=== PATIENT | female | born 1960 ===

== ENCOUNTER 2016-11-02 09:29 | Emergency (ER) | payer OTHER ==
--- NOTE | 2016-11-02 10:04 | DIAGNOSTIC IMAGING REPORT ---
PROCEDURE: XR CHEST 1 VIEW INDICATION: SHORTNESS OF BREATH TECHNIQUE: Portable AP view 09:58 a.m. COMPARISON: Chest x-ray 08/11/2015 FINDINGS: Poor inspiration with mild bibasilar atelectasis. Heart and mediastinum are normal. Thorax is normal. IMPRESSION: 1. Poor inspiration with bibasilar atelectasis
--- NOTE | 2016-11-02 12:16 | ED CLINICAL REPORT ---
Clinical Report - Physicians/Mid Levels [facility] [address] [place] [address] 11/02/2016 9:29 Patient: JULIO C VORA Time Seen: 09:34. Arrived- By private vehicle. Historian- patient. HISTORY OF PRESENT ILLNESS Chief Complaint: CHEST DISCOMFORT. SHORTNESS OF BREATH. At its maximum, severity described as moderate. When seen in the E.D., severity described as moderate. Modifying factors- worsened by movement and walking. Relieved by rest. This started several days ago and is still present. It was gradual in onset and has been waxing/waning. Onset during light activity. It is described as pressure and it is described as located in the central chest area. No radiation. The patient has had difficulty breathing and nausea and has experienced diaphoresis. No vomiting. Similar symptoms previously: None. Recent medical care: Not recently seen/assessed. REVIEW OF SYSTEMS No fever, chills, pedal edema, calf pain or fainting episodes. No sore throat, abdominal pain, black stools, difficulty with urination or skin rash. No bloody stools. She has had a mild cough and lower back pain. States she may have some abdominal bloating. All systems otherwise negative, except as recorded above. PAST HISTORY See nurses notes. PCP - [facility]. Problems: Tympanic membrane perforation R. UTI Surgeries: Appendectomy. Cholecystectomy. Tonsillectomy. Tubal Ligation. No history of aortic disease, coronary artery disease, congestive heart failure, heart rhythm problems or pulmonary embolism. Medications: None. Allergies: No Known Drug Allergy. SOCIAL HISTORY Never smoker. No alcohol use or drug use. Residence: [facility] (Formerly [facility]). ADDITIONAL NOTES The nursing notes have been reviewed. PHYSICAL EXAM Vital Signs: 11/02/2016 09:44 BP: 117/56. HR: 199. RR: 18. O2 saturation: 100%. FLACC pain scale: 10/10. 11/02/2016 09:32 HR: 201. RR: 20. O2 saturation: 100%. FLACC pain scale: 10/10. Appearance: Alert. Oriented X3. Anxious. Patient in moderate distress. Eyes: Pupils equal, round and reactive to light. Eyes normal inspection. No scleral icterus or pale conjunctivae. ENT: Pharynx normal. No pharyngeal erythema or tonsillar exudate. The mucous membranes are not dry. Neck: Normal inspection. Neck supple. CVS: Tachycardia. Heart sounds normal. Pulses normal. Respiratory: No respiratory distress. Breath sounds normal. Abdomen: Soft and nontender. No organomegaly. No mass. Back: Normal external inspection. Skin: No cyanosis. Skin warm and dry. Normal skin turgor. Slight diaphoresis. Extremities: Extremities exhibit normal ROM. No lower extremity edema. Neuro: Oriented X 3. No motor deficit. LABS, X-RAYS, AND EKG EKG: EKG time: (09:38). Regular narrow-complex tachycardia (ventricular rate 200). PSVT. Normal P waves. Normal ASHTYN. Normal QRS complex. Normal axis. Non-specific ST segment / T wave abnormalities. The study has been interpreted contemporaneously by me. The EKG appears to be a good tracing. EKG #2: EKG time: (09:52). Normal sinus rhythm. Rate: 95. Normal P waves. Normal ASHTYN. Normal QRS complex. Normal axis. Normal ST and T waves. Non-specific ST segment / T wave abnormalities. The study has been interpreted contemporaneously by me. The EKG appears to be a good tracing. Rhythm Strip #1: Non-specific ST segment / T-wave abnormalities. Chest X-ray: No acute disease. (Poor inspiration with bibasilar atelectasis). Views: AP (portable). Technique: good, poor inspiration. The X-rays were interpreted contemporaneously by me. The X-rays were discussed with the radiologist (via PACS note). Laboratory Tests: UA-Culture if indicated: (ALESSANDRO: 11/02/2016 11:30) ( MsgRcvd 11/02/2016 12:16) Final results Test Result Flag Units (Reference) URINE COLOR YELLOW URINE APPEARANCE CLEAR URINE GLUCOSE NEGATIVE (NEGATIVE) URINE BILIRUBIN NEGATIVE (NEGATIVE) URINE KETONE NEGATIVE (NEGATIVE) URINE SPECIFIC GRAVITY <= 1.005 L (1.010-1.030) URINE PH 6.5 (5.0-8.0) URINE PROTEIN NEGATIVE (NEGATIVE) URINE UROBILINOGEN 4.0 EU/dL (0.2-1.0) The urobilinogen reagent area may react with interferingsubstances known to react with Steffanie's reagent such asp-aminosalicylic acid and sulfonamides. Atypical colorreactions may be obtained in the presence of highconcentrations of p-aminobenzoic acid. The absence ofurobilinogen cannot be determined with this test. URINE NITRITE NEGATIVE (NEGATIVE) URINE BLOOD TRACE-INTACT (NEGATIVE) URINE LEUK ESTERASE POSITIVE (NEGATIVE) URINE RBC RARE rbc/hpf (0-1) URINE WBC 1-3 wbc/hpf (0-1) URINE EPITHELIAL CELLS 1-3 EPI/hpf (0-5) URINE BACTERIA FEW (1+) (NONE SEEN) URINE COMMENT CULTURE INDICATED URINE CULTURES ARE SET-UP BASED ON THE FOLLOWING CRITERIA:POSITIVE NITRITEPOSITIVE LEUKOCYTE ESTERASEGREATER THAN 10 WHITE BLOOD CELLSMODERATE (2+) OR GREATER BACTERIA CBC w Diff: (ALESSANDRO: 11/02/2016 09:40) ( [facility] 11/02/2016 09:51) Final results Test Result Flag Units (Reference) WHITE BLOOD COUNT 12.9 H K/uL (4.5-11.5) RED BLOOD COUNT 4.73 M/uL (4.00-5.20) HEMOGLOBIN 13.3 gm/dL (12.0-16.0) HEMATOCRIT 39.6 % (36.0-46.0) MEAN CELL VOLUME 84 fL (80-100) MEAN CORPUSCULAR HGB 28 pg (26-34) MEAN CORPUSCULAR HGB CONC 34 g/dL (31-37) RED CELL DISTRIBUTION WIDTH 13.7 % (11.6-14.8) PLATELET COUNT 325 K/uL (150-400) NEUTROPHIL % 78.3 H % (50-75) LYMPH % 17.5 L % (25-40) MONO % 2.4 L % (3-14) EOSINOPHIL % 1.7 % (0-4) BASOPHIL % 0.1 % (0-2) PT with INR: (ALESSANDRO: 11/02/2016 09:40) ( [facility] 11/02/2016 09:59) Final results Test Result Flag Units (Reference) INR 1.0 (0.8-1.2) Low Intensity Therapy: INR 1.5-2.0 PT range 18.5-23.1Mod.Intensity Therapy: INR 2.0-3.0 PT range 23.1-31.5High Intensity Therapy: INR 2.5-3.5 PT range 27.4-35.5High Intensity Therapy 2: INR 3.0-4.0 PT range 31.5-39.3 D-DIMER QUANTITATIVE 0.47 ug/mLFEU (0.27-0.52) The primary value of this quantitative assay relates toits negative predictive value (i.e. exclusion) of pulmonaryembolism/deep vein thrombosis/DIC.Elevated levels of d-dimer may also occur with:, age, cancer, inflammation, liver disease,post-op, infection, hematoma, coronary disease, peripheralarteriopathy, bleeding disorders and thrombolytic treatment.Results should be correlated with other clinical andradiological data.Testing Methodology: Latex Immunoassay Urine Drug Screen: (ALESSANDRO: 11/02/2016 11:30) ( MsgRcvd 11/02/2016 12:06) Final results Test Result Flag Units (Reference) AMPHETAMINE/METHAMPHETAMINE NEGATIVE (NEGATIVE) BARBITURATE NEGATIVE (NEGATIVE) BENZODIAZEPINE NEGATIVE (NEGATIVE) CANNABINOID NEGATIVE (NEGATIVE) COCAINE NEGATIVE (NEGATIVE) ECSTASY NEGATIVE (NEGATIVE) METHADONE NEGATIVE (NEGATIVE) OPIATE POSITIVE H (NEGATIVE) The urine drug screen is a qualitative screening test fordrug overdose and abuse. All screen results should beconsidered as presumptive.Drugs screened for are as follows:BenzodiazepinesCocaineAmphetamines/MetamphetaminesTHC (Tetrahydrocannabinol)OpiatesBarbituratesEcstasyMethadonePositive results are unconfirmed. For confirmation, notifythe lab for the specimen to be sent to the reference lab.All confirmations must be performed by a differentmethodology.The ingestion of natural herbal and plant productscontaining Ephedra/Ephedra metabolites can produce in urineone or more substances capable of cross reacting withamphetamine/methamphetamine immunoassays. These testsprovide a preliminary result only. A more specificalternative chemical method must be used to obtain aconfirmed analytical result. BNP: (ALESSANDRO: 11/02/2016 09:40) ( MsgRcvd 11/02/2016 10:12) Final results Test Result Flag Units (Reference) B-TYPE NATRIURETIC PEPTIDE 552 H pg/ml (5-100) CHEM 13 PANEL: (ALESSANDRO: 11/02/2016 09:40) ( MsgRcvd 11/02/2016 10:28) Final results Test Result Flag Units (Reference) GLUCOSE 137 H mg/dL (70-110) BUN 9 mg/dL (7-18) CREATININE 1.2 mg/dL (0.6-1.3) Estimated GFR 49.39 mL/min Estimated GFR- 59.86 mL/min Note: Persistent reduction over 3 months in eGFR<60 mL/min/1.73 m2 defines CKD. Patients with eGFR values>=60 mL/min/1.73 m2 may also have CKD if evidence ofpersistent proteinuria. Additional information may be foundat www.kidney.org. SODIUM 151 H mmol/L (136-145) POTASSIUM 3.6 mmol/L (3.5-5.1) CHLORIDE 108 H mmol/L (98-107) CARBON DIOXIDE 25 mmol/L (21-32) CALCIUM 8.6 mg/dL (8.5-10.1) TOTAL PROTEIN 7.7 g/dL (6.4-8.2) ALBUMIN 3.5 g/dL (3.3-5.0) BILIRUBIN, TOTAL 1.0 mg/dL (0.0-1.0) ALKALINE PHOSPHATASE 111 U/L (46-116) AST (SGOT) 19 U/L (15-37) ALT (SGPT) 27 U/L (12-78) CPK 55 U/L (24-260) MAGNESIUM 2.0 mg/dL (1.8-2.4) LIPASE 65 L U/L (73-393) AMYLASE 12 L U/L (25-115) TROPONIN I <0.05 ng/mL (0.00-1.5) TROPONIN REFERENCE RANGE:<0.1 NEGATIVE0.1-1.5 INDETERMINANT>1.5 POSITIVE THYROID STIMULATING HORMONE 0.854 uIU/mL (0.30-3.74) ETHYL ALCOHOL <3 L mg/dL (3-10) . Pulse Oximetry: 11/02/2016 09:32 O2 saturation: 100%. (FIO2 - room air). Interpretation: normal. PROGRESS AND PROCEDURES Course of Care: Acetaminophen 1000 mg PO given. Adenosine 6 mg IVP given. Normal Saline 2 liter IVPB given. ASA 325 mg PO given. Lovenox 80 mg subQ given. Ceftriaxone 1gm IVP given. 09:51 11/02/16. O2 saturation- 98% (FIO2 - room air). Appearance better. Sinus rhythm. Adenocard given 6 mg. 12:10 11/02/16. Pt is now in a new rhythm - bigeminy pattern with PACs and ectopic atrial rhythm. BP in upper 80's, but otherwise asymptomatic 14:58 11/02/16. Just received bed at [facility] for pt 16:04 11/02/16. [facility] transport in ED now. Discussed case with hospitalist, (Tj). Reviewed test results. Agreed upon treatment plan. Refers case to other health care provider. Discussed case with on-call health care provider, (Sean call returned 13:20). Reviewed test results. Agreed upon treatment plan. Health care provider will see patient in hospital. Refers case to other health care provider. Call placed to hospitalist Zak - [facility] call placed 13:25 call returned 13:30. Patient/family counseled. Old ED records reviewed. Transfer orders written. Disposition: Transferred to [facility]. [facility] hospitalist did not feel comfortable keeping pt at [facility]. Condition: guarded and improved. CLINICAL IMPRESSION Acute moderate systolic, left ventricular congestive heart failure. Mild idiopathic hypotension. Abnormal EKG: paroxysmal supraventricular tachycardia, nonspecific ST-T wave changes and premature ventricular contractions. (initially SVT, then bigemeny with PAC's and likely ectopic atrial rhythm). Paroxysmal supraventricular tachycardia Acute urinary tract infection with cystitis. (Electronically signed by Harman Simons DO 11/02/2016 16:24)
--- NOTE | 2016-11-02 12:16 | ED CLINICAL REPORT ---
Clinical Report - Physicians/Mid Levels [facility] [address] [place] [address] 11/02/2016 9:29 Patient: JULIO C VORA Time Seen: 09:34. Arrived- By private vehicle. Historian- patient. HISTORY OF PRESENT ILLNESS Chief Complaint: CHEST DISCOMFORT. SHORTNESS OF BREATH. At its maximum, severity described as moderate. When seen in the E.D., severity described as moderate. Modifying factors- worsened by movement and walking. Relieved by rest. This started several days ago and is still present. It was gradual in onset and has been waxing/waning. Onset during light activity. It is described as pressure and it is described as located in the central chest area. No radiation. The patient has had difficulty breathing and nausea and has experienced diaphoresis. No vomiting. Similar symptoms previously: None. Recent medical care: Not recently seen/assessed. REVIEW OF SYSTEMS No fever, chills, pedal edema, calf pain or fainting episodes. No sore throat, abdominal pain, black stools, difficulty with urination or skin rash. No bloody stools. She has had a mild cough and lower back pain. States she may have some abdominal bloating. All systems otherwise negative, except as recorded above. PAST HISTORY See nurses notes. PCP - [facility]. Problems: Tympanic membrane perforation R. UTI Surgeries: Appendectomy. Cholecystectomy. Tonsillectomy. Tubal Ligation. No history of aortic disease, coronary artery disease, congestive heart failure, heart rhythm problems or pulmonary embolism. Medications: None. Allergies: No Known Drug Allergy. SOCIAL HISTORY Never smoker. No alcohol use or drug use. Residence: [facility]. ADDITIONAL NOTES The nursing notes have been reviewed. PHYSICAL EXAM Vital Signs: 11/02/2016 09:44 BP: 117/56. HR: 199. RR: 18. O2 saturation: 100%. FLACC pain scale: 10/10. 11/02/2016 09:32 HR: 201. RR: 20. O2 saturation: 100%. FLACC pain scale: 10/10. Appearance: Alert. Oriented X3. Anxious. Patient in moderate distress. Eyes: Pupils equal, round and reactive to light. Eyes normal inspection. No scleral icterus or pale conjunctivae. ENT: Pharynx normal. No pharyngeal erythema or tonsillar exudate. The mucous membranes are not dry. Neck: Normal inspection. Neck supple. CVS: Tachycardia. Heart sounds normal. Pulses normal. Respiratory: No respiratory distress. Breath sounds normal. Abdomen: Soft and nontender. No organomegaly. No mass. Back: Normal external inspection. Skin: No cyanosis. Skin warm and dry. Normal skin turgor. Slight diaphoresis. Extremities: Extremities exhibit normal ROM. No lower extremity edema. Neuro: Oriented X 3. No motor deficit. LABS, X-RAYS, AND EKG EKG: EKG time: (09:38). Regular narrow-complex tachycardia (ventricular rate 200). PSVT. Normal P waves. Normal ASHTYN. Normal QRS complex. Normal axis. Non-specific ST segment / T wave abnormalities. The study has been interpreted contemporaneously by me. The EKG appears to be a good tracing. EKG #2: EKG time: (09:52). Normal sinus rhythm. Rate: 95. Normal P waves. Normal ASHTYN. Normal QRS complex. Normal axis. Normal ST and T waves. Non-specific ST segment / T wave abnormalities. The study has been interpreted contemporaneously by me. The EKG appears to be a good tracing. Rhythm Strip #1: Non-specific ST segment / T-wave abnormalities. Chest X-ray: No acute disease. (Poor inspiration with bibasilar atelectasis). Views: AP (portable). Technique: good, poor inspiration. The X-rays were interpreted contemporaneously by me. The X-rays were discussed with the radiologist (via PACS note). Laboratory Tests: UA-Culture if indicated: (ALESSANDRO: 11/02/2016 11:30) ( MsgRcvd 11/02/2016 12:16) Final results Test Result Flag Units (Reference) URINE COLOR YELLOW URINE APPEARANCE CLEAR URINE GLUCOSE NEGATIVE (NEGATIVE) URINE BILIRUBIN NEGATIVE (NEGATIVE) URINE KETONE NEGATIVE (NEGATIVE) URINE SPECIFIC GRAVITY <= 1.005 L (1.010-1.030) URINE PH 6.5 (5.0-8.0) URINE PROTEIN NEGATIVE (NEGATIVE) URINE UROBILINOGEN 4.0 EU/dL (0.2-1.0) The urobilinogen reagent area may react with interferingsubstances known to react with Steffanie's reagent such asp-aminosalicylic acid and sulfonamides. Atypical colorreactions may be obtained in the presence of highconcentrations of p-aminobenzoic acid. The absence ofurobilinogen cannot be determined with this test. URINE NITRITE NEGATIVE (NEGATIVE) URINE BLOOD TRACE-INTACT (NEGATIVE) URINE LEUK ESTERASE POSITIVE (NEGATIVE) URINE RBC RARE rbc/hpf (0-1) URINE WBC 1-3 wbc/hpf (0-1) URINE EPITHELIAL CELLS 1-3 EPI/hpf (0-5) URINE BACTERIA FEW (1+) (NONE SEEN) URINE COMMENT CULTURE INDICATED URINE CULTURES ARE SET-UP BASED ON THE FOLLOWING CRITERIA:POSITIVE NITRITEPOSITIVE LEUKOCYTE ESTERASEGREATER THAN 10 WHITE BLOOD CELLSMODERATE (2+) OR GREATER BACTERIA CBC w Diff: (ALESSANDRO: 11/02/2016 09:40) ( [facility] 09:[facility]) Final results Test Result Flag Units (Reference) WHITE BLOOD COUNT 12.9 H K/uL (4.5-11.5) RED BLOOD COUNT 4.73 M/uL (4.00-5.20) HEMOGLOBIN 13.3 gm/dL (12.0-16.0) HEMATOCRIT 39.6 % (36.0-46.0) MEAN CELL VOLUME 84 fL (80-100) MEAN CORPUSCULAR HGB 28 pg (26-34) MEAN CORPUSCULAR HGB CONC 34 g/dL (31-37) RED CELL DISTRIBUTION WIDTH 13.7 % (11.6-14.8) PLATELET COUNT 325 K/uL (150-400) NEUTROPHIL % 78.3 H % (50-75) LYMPH % 17.5 L % (25-40) MONO % 2.4 L % (3-14) EOSINOPHIL % 1.7 % (0-4) BASOPHIL % 0.1 % (0-2) PT with INR: (ALESSANDRO: 11/02/2016 09:40) ( [facility] [place]/02/2016 09:59) Final results Test Result Flag Units (Reference) INR 1.0 (0.8-1.2) Low Intensity Therapy: INR 1.5-2.0 PT range 18.5-23.1Mod.Intensity Therapy: INR 2.0-3.0 PT range 23.1-31.5High Intensity Therapy: INR 2.5-3.5 PT range 27.4-35.5High Intensity Therapy 2: INR 3.0-4.0 PT range 31.5-39.3 D-DIMER QUANTITATIVE 0.47 ug/mLFEU (0.27-0.52) The primary value of this quantitative assay relates toits negative predictive value (i.e. exclusion) of pulmonaryembolism/deep vein thrombosis/DIC.Elevated levels of d-dimer may also occur with:, age, cancer, inflammation, liver disease,post-op, infection, hematoma, coronary disease, peripheralarteriopathy, bleeding disorders and thrombolytic treatment.Results should be correlated with other clinical andradiological data.Testing Methodology: Latex Immunoassay Urine Drug Screen: (ALESSANDRO: 11/02/2016 11:30) ( MsgRcvd 11/02/2016 12:06) Final results Test Result Flag Units (Reference) AMPHETAMINE/METHAMPHETAMINE NEGATIVE (NEGATIVE) BARBITURATE NEGATIVE (NEGATIVE) BENZODIAZEPINE NEGATIVE (NEGATIVE) CANNABINOID NEGATIVE (NEGATIVE) COCAINE NEGATIVE (NEGATIVE) ECSTASY NEGATIVE (NEGATIVE) METHADONE NEGATIVE (NEGATIVE) OPIATE POSITIVE H (NEGATIVE) The urine drug screen is a qualitative screening test fordrug overdose and abuse. All screen results should beconsidered as presumptive.Drugs screened for are as follows:BenzodiazepinesCocaineAmphetamines/MetamphetaminesTHC (Tetrahydrocannabinol)OpiatesBarbituratesEcstasyMethadonePositive results are unconfirmed. For confirmation, notifythe lab for the specimen to be sent to the reference lab.All confirmations must be performed by a differentmethodology.The ingestion of natural herbal and plant productscontaining Ephedra/Ephedra metabolites can produce in urineone or more substances capable of cross reacting withamphetamine/methamphetamine immunoassays. These testsprovide a preliminary result only. A more specificalternative chemical method must be used to obtain aconfirmed analytical result. BNP: (ALESSANDRO: 11/02/2016 09:40) ( MsgRcvd 11/02/2016 10:12) Final results Test Result Flag Units (Reference) B-TYPE NATRIURETIC PEPTIDE 552 H pg/ml (5-100) CHEM 13 PANEL: (ALESSANDRO: 11/02/2016 09:40) ( MsgRcvd 11/02/2016 10:28) Final results Test Result Flag Units (Reference) GLUCOSE 137 H mg/dL (70-110) BUN 9 mg/dL (7-18) CREATININE 1.2 mg/dL (0.6-1.3) Estimated GFR 49.39 mL/min Estimated GFR- 59.86 mL/min Note: Persistent reduction over 3 months in eGFR<60 mL/min/1.73 m2 defines CKD. Patients with eGFR values>=60 mL/min/1.73 m2 may also have CKD if evidence ofpersistent proteinuria. Additional information may be foundat www.kidney.org. SODIUM 151 H mmol/L (136-145) POTASSIUM 3.6 mmol/L (3.5-5.1) CHLORIDE 108 H mmol/L (98-107) CARBON DIOXIDE 25 mmol/L (21-32) CALCIUM 8.6 mg/dL (8.5-10.1) TOTAL PROTEIN 7.7 g/dL (6.4-8.2) ALBUMIN 3.5 g/dL (3.3-5.0) BILIRUBIN, TOTAL 1.0 mg/dL (0.0-1.0) ALKALINE PHOSPHATASE 111 U/L (46-116) AST (SGOT) 19 U/L (15-37) ALT (SGPT) 27 U/L (12-78) CPK 55 U/L (24-260) MAGNESIUM 2.0 mg/dL (1.8-2.4) LIPASE 65 L U/L (73-393) AMYLASE 12 L U/L (25-115) TROPONIN I <0.05 ng/mL (0.00-1.5) TROPONIN REFERENCE RANGE:<0.1 NEGATIVE0.1-1.5 INDETERMINANT>1.5 POSITIVE THYROID STIMULATING HORMONE 0.854 uIU/mL (0.30-3.74) ETHYL ALCOHOL <3 L mg/dL (3-10) . Pulse Oximetry: 11/02/2016 09:32 O2 saturation: 100%. (FIO2 - room air). Interpretation: normal. PROGRESS AND PROCEDURES Course of Care: Acetaminophen 1000 mg PO given. Adenosine 6 mg IVP given. Normal Saline 2 liter IVPB given. ASA 325 mg PO given. Lovenox 80 mg subQ given. Ceftriaxone 1gm IVP given. 09:51 11/02/16. O2 saturation- 98% (FIO2 - room air). Appearance better. Sinus rhythm. Adenocard given 6 mg. 12:10 11/02/16. Pt is now in a new rhythm - bigeminy pattern with PACs and ectopic atrial rhythm. BP in upper 80's, but otherwise asymptomatic 14:58 11/02/16. Just received bed at [facility] for pt 16:04 11/02/16. [facility] ED now. Discussed case with hospitalist, (Tj). Reviewed test results. Agreed upon treatment plan. Refers case to other health care provider. Discussed case with on-call health care provider, (Sean call returned 13:20). Reviewed test results. Agreed upon treatment plan. Health care provider will see patient in hospital. Refers case to other health care provider. Call placed to hospitalist Zak - [facility] call placed 13:25 call returned 13:30. Patient/family counseled. Old ED records reviewed. Transfer orders written. Disposition: Transferred to [facility]. [facility] hospitalist did not feel comfortable keeping pt at [facility]. Condition: guarded and improved. CLINICAL IMPRESSION Acute moderate systolic, left ventricular congestive heart failure. Mild idiopathic hypotension. Abnormal EKG: paroxysmal supraventricular tachycardia, nonspecific ST-T wave changes and premature ventricular contractions. (initially SVT, then bigemeny with PAC's and likely ectopic atrial rhythm). Paroxysmal supraventricular tachycardia Acute urinary tract infection with cystitis. (Electronically signed by Harman Simons DO 11/02/2016 16:24)
--- NOTE | 2016-11-02 12:16 | ED ORDER SUMMARY ---
..... Patient: JULIO C VORA OrderSheet [facility] VisitID: [id number] [address] [place] [address] 56y, F Registration Date/Time: 11/02/2016 ORDER SHEET Weight: 72.5 kg (stated) Allergies: No Known Drug Allergy GENERAL ORDERS: Chest 1V Urgent (:11/02/2016 PHutchinson DO) (9:59 LWhalen R.N.) Registered Pharmacist (Continuous) (:11/02/2016 PHutchinson DO) (10:01 JSimbeck R.N.) UA-Culture if indicated Urgent (:11/02/2016 PHutchinson DO) (10:00 LWhalen R.N.) Cardiac Panel Stat (:11/02/2016 PHutchinson DO) (10:00 LWhalen R.N.) BNP Urgent (:11/02/2016 PHutchinson DO) (10:00 LWhalen R.N.) D-Dimer Urgent (:11/02/2016 PHutchinson DO) (10:00 LWhalen R.N.) Amylase Urgent (:11/02/2016 PHutchinson DO) (10:00 LWhalen R.N.) PT with INR Urgent (:11/02/2016 PHutchinson DO) (10:00 LWhalen R.N.) TSH Urgent (:11/02/2016 PHutchinson DO) (9:59 LWhalen R.N.) Ethyl Alcohol Urgent (:11/02/2016 PHutchinson DO) (9:59 LWhalen R.N.) Urine Drug Screen Urgent (:11/02/2016 PHutchinson DO) (9:59 LWhalen R.N.) Lipase Urgent (:11/02/2016 PHutchinson DO) (9:59 LWhalen R.N.) Oxygen (2 L/min) (NC) (:11/02/2016 PHutchinson DO) (10:04 JBest R.N.) Pulse oximeter (:11/02/2016 PHutchinson DO) (10:01 Darya R.N.) EKG - ER Stat (09:38 11/02/2016 [facility]) (10:00 Emerita R.N.) Vitals (09:38 11/02/2016 [facility]) (10:01 Darya R.N.) Call (Place call to): (Dr Spencer) (12:12 11/02/2016 [facility]) (12:29 LWgarry R.N.) Call (Place call to): (Heriberto Cardiollogy it professional) (12:23 11/02/2016 [facility]) (12:29 Emerita R.N.) MEDICATION ORDERS: Aspirin PO 325 mg (Do not crush or chew, NOW) (12:11 11/02/2016 [facility]) (12:30 JBest R.N.) Lovenox Subcut 80 mg (HIGH ALERT MEDICATION, NOW) (12:11 11/02/2016 [facility]) (12:31 JBest R.N.) Acetaminophen PO 1,000 mg (NOW) (15:31 11/02/2016 [facility]) (15:41 JBest R.N.) IV FLUIDS: IV NS : initial bolus 500 mL (1000 mL/hr), then 250 mL/hr for X2 (NOW) (09:37 11/02/2016 [facility]) (10:06 JBest R.N.) Adenosine IV 6 mg (HIGH ALERT MEDICATION, NOW) (09:38 11/02/2016 [facility]) (10:06 JBest R.N.) ORDER SHEET NOTES: [Electronically signed by Harman Simons DO (16:24 11/02/2016)] [Electronically signed by Dagmar Aceves R.N. (19:07 11/02/2016)] [Electronically locked/signed by Dagmar Aceves R.N. (19:11/02/2016)]
--- NOTE | 2016-11-02 12:16 | ED ORDER SUMMARY ---
..... Patient: JULIO C VORA OrderSheet [facility] VisitID: [id number] [address] [place] [address] 56y, F Registration Date/Time: 11/02/2016 ORDER SHEET Weight: 72.5 kg (stated) Allergies: No Known Drug Allergy GENERAL ORDERS: Chest 1V Urgent (:11/02/2016 PHutchinson DO) (9:59 LWhalen R.N.) Embedded Systems Software Developer (Continuous) (:11/02/2016 PHutchinson DO) (10:01 JSimbeck R.N.) UA-Culture if indicated Urgent (:11/02/2016 PHutchinson DO) (10:00 LWhalen R.N.) Cardiac Panel Stat (:11/02/2016 PHutchinson DO) (10:00 LWhalen R.N.) BNP Urgent (:11/02/2016 PHutchinson DO) (10:00 LWhalen R.N.) D-Dimer Urgent (:11/02/2016 PHutchinson DO) (10:00 LWhalen R.N.) Amylase Urgent (:11/02/2016 PHutchinson DO) (10:00 LWhalen R.N.) PT with INR Urgent (:11/02/2016 PHutchinson DO) (10:00 LWhalen R.N.) TSH Urgent (:11/02/2016 PHutchinson DO) (9:59 LWhalen R.N.) Ethyl Alcohol Urgent (:11/02/2016 PHutchinson DO) (9:59 LWhalen R.N.) Urine Drug Screen Urgent (:11/02/2016 PHutchinson DO) (9:59 LWhalen R.N.) Lipase Urgent (:11/02/2016 PHutchinson DO) (9:59 LWhalen R.N.) Oxygen (2 L/min) (NC) (:11/02/2016 PHutchinson DO) (10:04 JBest R.N.) Pulse oximeter (:11/02/2016 PHutchinson DO) (10:01 Darya R.N.) EKG - ER Stat (09:38 11/02/2016 [facility]) (10:00 Emerita R.N.) Vitals (09:38 11/02/2016 [facility]) (10:01 Darya R.N.) Call (Place call to): (Dr Spencer) (12:12 11/02/2016 [facility]) (12:29 LWgarry R.N.) Call (Place call to): (Heriberto Cardiollogy senior quality control inspector) (12:23 11/02/2016 [facility]) (12:29 Emerita R.N.) MEDICATION ORDERS: Aspirin PO 325 mg (Do not crush or chew, NOW) (12:11 11/02/2016 [facility]) (12:30 JBest R.N.) Lovenox Subcut 80 mg (HIGH ALERT MEDICATION, NOW) (12:11 11/02/2016 [facility]) (12:31 JBest R.N.) Acetaminophen PO 1,000 mg (NOW) (15:31 11/02/2016 [facility]) (15:41 JBest R.N.) IV FLUIDS: IV NS : initial bolus 500 mL (1000 mL/hr), then 250 mL/hr for X2 (NOW) (09:37 11/02/2016 [facility]) (10:06 JBest R.N.) Adenosine IV 6 mg (HIGH ALERT MEDICATION, NOW) (09:38 11/02/2016 [facility]) (10:06 JBest R.N.) ORDER SHEET NOTES: [Electronically signed by Harman Simons DO (16:24 11/02/2016)] [Electronically signed by Dagmar Aceves R.N. (19:07 11/02/2016)] [Electronically locked/signed by Dagmar Aceves R.N. (19:11/02/2016)]
--- NOTE | 2016-11-02 12:16 | ED NURSING NOTES ---
Clinical Report - Nurses [facility] [address] [place] [address] 11/02/2016 9:29 Patient: JULIO C VORA TRIAGE Triage time 0930. Acuity: LEVEL 2. Chief Complaint: CHEST PAIN and DISCOMFORT. Alert. SEPSIS SCREEN: Sepsis Screen. Negative (no infection suspected/documented). --10:00 Dagmar Aceves R.N. 09:32 11/02/16. BP: deferred. HR: 201. RR: 20. O2 saturation: 100%. Temp: deferred. FLACC pain scale: 1010. --10:00 Dagmar Aceves R.N. Weight: 72.5 kg stated. Height/Length: 64 inches Per Patient. BMI: 27.5. --10:00 Dagmar Aceves R.N. Medications None. --09:53 Dagmar Aceves R.N. Allergies No Known Drug Allergy. --09:53 Dagmar Aceves R.N. History Arrived by private vehicle. Historian: patient and family. Accompanied by family. Primary physician ([facility]). Onset was abrupt. Symptoms are constant and still present (about 3 days ago). She has had difficulty breathing. Reports experiencing sweating episodes. 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 SOCIAL HX: Never smoker. No alcohol use or drug use. No infectious disease exposure. SELF HARM ASSESSMENT: A self harm assessment was performed. The patient answered "no" to the question "Do you have thoughts of harming or killing yourself?". FALL RISK ASSESSMENT: Fall risk assessment completed. No fall risk identified. NUTRITIONAL RISK ASSESSMENT: The nutritional risk assessment revealed no deficiencies. FUNCTIONAL ASSESSMENT: Functional assessment: no impairments noted. LEARNING NEEDS ASSESSMENT: The learning needs assessment revealed no barriers. ABUSE ASSESSMENT: Abuse assessment: ("YES") The patient was asked "Do you feel safe in your home?". SKIN INTEGRITY ASSESSMENT: Skin integrity risk assessment completed. No skin integrity risk identified. --10:00 Dagmar Aceves R.N. PROBLEMS: Contusion. UTI - Urinary Tract Infection. Dizziness. Tympanic membrane perforation R. --09:54 Dagmar Aceves R.N. ADDITIONAL SURGERIES: Appendectomy. Cholecystectomy. Tonsillectomy. Tubal Ligation. --09:54 Dagmar Aceves R.N. Interventions ID band on patient. To room. --10:00 Dagmar Aceves R.N. PHYSICAL ASSESSMENT 09:30. Ambulatory to room. GENERAL / NEURO / PSYCH: Alert. Oriented X 4. Appears in pain, anxious and in distress. RESPIRATORY: Moderate respiratory distress. CVS: Cardiac rhythm: supraventricular tachycardia; (hr 201). Capillary refill is greater than 2 seconds. SKIN: Skin is warm. Skin is diaphoretic. --10:03 Dagmar Aceves R.N. NURSING PROGRESS NOTES 09:30 11/02/2016 Site #1 started via IV in the right antecubital space with an 20g angiocath, with aseptic technique and good blood return; one attempt. Blood drawn: rainbow set. Labeled in the presence of the patient and sent to the lab. Saline lock flushed with 10 mL saline. --10:04 Dagmar Aceves R.N. 09:40 11/02/2016 Started bag #1 1000 mL IV Fluids IV NS (Saline); bolus of 500 mL wide open via site #1 via IV pump. Allergies verified and confirmed 5 rights. IV patency established. IV site checked: no pain, redness, or swelling. IV flushed thoroughly pre- and post-medication administration. --10:06 Dagmar Aceves R.N. 09:45 11/02/2016 Adenosine IVP 6 mg given over 1 second(s) via site #1. Allergies verified and confirmed 5 rights. IV patency established. IV site checked: no pain, redness, or swelling. IV flushed thoroughly pre- and post-medication administration. IVP given by RN. --10:06 Dagmar Aceves R.N. Oxygen administered. Monitoring of patient in place. EKG time: (929). EKG was performed by a nurse and shown to the ED physician. Patient ID band checked: patient confirmed. Blood samples drawn by nurse per protocol ; labeled in presence of the patient and sent to lab: rainbow set. Patient gowned. Reassurance given. Patient identifiers checked. Patient ready for evaluation. --10:07 Dagmar Aceves R.N. Reassessment after oxygen and fluids administered, intervention and medication administered (Adenosine). Overall patient status is improved- she states feels better. RESPIRATORY: No respiratory distress. Breath sounds normal. CVS: Normal sinus rhythm noted. SKIN: Skin is warm and dry. Skin color within normal limits. --10:08 Dagmar Aceves R.N. 09:44 11/02/16. BP: 117/56. HR: 199. RR: 18. O2 saturation: 100%. Temp: deferred. FLACC pain scale: 10/10. --10:11 Dagmar Aceves R.N. 09:45 11/02/16. BP: 94/76. HR: deferred. RR: 18. O2 saturation: deferred. Temp: deferred. FLACC pain scale: 10/10. --10:12 Dagmar Aceves R.N. 09:49 11/02/16. BP: 108/62. HR: 88. RR: 16. O2 saturation: 100%. Temp: deferred. Pain level now: 0/10. --10:13 Dagmar Aceves R.N. 10:00 11/02/16. BP: 94/66. HR: 99. RR: 16. O2 saturation: 100%. Temp: deferred. Pain level now: 0/10. --10:14 Dagmar Aceves R.N. 10:14 11/02/16. BP: 93/59. HR: 100. RR: 16. O2 saturation: 100%. Temp: 98.1 F. Pain level now: 0/10. --10:15 Dagmar Aceves R.N. Overall patient status is improved- she states feels better. ( Pt is resting comfortably. Denies chest pain and sob. HR is 100 following adenosine 6mg IV administration. O2 sat is 100% on 2L O2 NC.). RESPIRATORY: No respiratory distress. CVS: Cardiac rhythm: normal sinus rhythm. SKIN: Skin color within normal limits. --10:18 Dagmar Aceves R.N. 10:25 11/02/2016 IV Fluids IV NS Bag Change: bag #1 infused. Total amount infused: 1000. STARTED bag #2 (1000 mL) at 250 mL/hr. Confirmed 5 rights. IV patency established. IV site checked: no pain, redness, or swelling. IV flushed thoroughly. --10:25 Dagmar Aceves R.N. The patient is resting quietly. ( Warm blankets given. at bedside.). --10:29 Dagmar Aceves R.N. ( got patient up to BS commode without difficulty. Patient was slightly winded from exertion.). --11:27 Roselia Selby R.N. The patient reports no complaints and she is calm and resting quietly. Overall patient status (pt talking on cell phone). --11:43 Dagmar Aceves R.N. 11:55 11/02/2016 IV Fluids IV NS via IV site #1 Rate Changed: bag #2 increased to 999 mL/hr via IV pump. IV patency established. IV site checked: no pain, redness, or swelling. IV flushed thoroughly. Confirmed 5 Rights. --11:55 Jorden Foss R.N. <<STRICKEN ENTRY-- 12:30 11/02/2016 Aspirin PO Tablets 325 mg given. --12:30 Dagmar Aceves R.N. --END STRIKE>> Change to Details. --12:30 Dagmar Aceves R.N. 12:30 11/02/2016 Aspirin PO Tablets 325 mg given. Allergies verified and confirmed 5 rights. --12:30 Dagmar Aceves R.N. 12:30 11/02/2016 Lovenox (Enoxaparin Sodium) Subcutaneous 80 mg given. Given in the right abdomen. Allergies verified and confirmed 5 rights. --12:31 Dagmar Aceves R.N. ( Face sheet faxed to [facility] --14:38 Rowena Kennedy, FLORENCE Tech1 Patient waiting for transportation. ( Report given to Sophia BAIRES at [facility]). --15:32 Dagmar Aceves R.N. 12:00 late entry -. ( pt up to bedside commode without difficulty). --15:33 Dagmar Aceves R.N. 15:41 11/02/2016 Acetaminophen (APAP) PO Tablets 1000 mg given. Allergies verified and confirmed 5 rights. --15:41 Dagmar Aceves R.N. 14:45 11/02/16. BP: 90/70. HR: 98. RR: 16. O2 saturation: 100%. Temp: deferred. Pain level now deferred. --16:22 Dagmar Aceves R.N. DISPOSITION / DISCHARGE Departure time: 1610. Transferred to [facility]. Summary of care provided to transport team via paper (16:05). --16:19 Dagmar Aceves R.N. 16:10 11/02/16. BP: 76/51. HR: 88. RR: 16. O2 saturation: 100%. Temp: 97.6 F. Pain level now: 07/05. --16:20 Dagmar Aceves R.N. 13:00 11/02/2016 IV Fluids IV NS Discontinued: bag #2 completed. Total amount infused: 1000 mL. --17:38 Dagmar Aceves R.N. 16:10 11/02/2016 Site #[address] upon transfer; patent, no pain and no signs of infection or infiltration. Converted to saline lock; flushes easily. --17:38 Dagmar Aceves R.N. Locked/Released at 11/02/2016 19:07 by Dagmar Aceves R.N.
--- NOTE | 2016-11-02 19:07 | ED MED RECONCILIATION SUMMARY ---
Patient: JULIO C VORA Medication Reconciliation Report [facility] VisitID: [id number] [address] [place] [address] 56y, F Registration Date/Time: 11/02/2016 Weight: 72.5 kg Height/Length: 64 in. BMI: 27.5 ALLERGIES: No Known Drug Allergy The patient's Home Medications are listed below: NONE. The source(s) of the original Home Medication information: Not obtained. The following Medications were given to the patient in the Emergency Department: Adenosine [IVP] IVP 6 mg, administered: 11/02/2016 9:45:00 AM IV NS IV Fluids bolus 500 mL wide open, administered: 11/02/2016 9:40:00 AM Aspirin [PO] PO 325 mg, administered: 11/02/2016 12:30:00 PM Lovenox [Subcutaneous] Subcutaneous 80 mg, administered: 11/02/2016 12:30:00 PM Acetaminophen [PO] PO 1000 mg, administered: 11/02/2016 3:41:00 PM The following Medications were prescribed to the patient: None.
--- NOTE | 2016-11-02 19:07 | ED DISCHARGE INSTRUCTIONS ---
Patient: JULIO C VORA General Instructions [facility] VisitID: [id number] [place] [address] 56y, F Registration Date/Time: 11/02/2016 Acute moderate systolic, left ventricular congestive heart failure. Mild idiopathic hypotension. Abnormal EKG: paroxysmal supraventricular tachycardia, nonspecific ST-T wave changes and premature ventricular contractions. (initially SVT, then bigemeny with PAC's and likely ectopic atrial rhythm). Paroxysmal supraventricular tachycardia Acute urinary tract infection with cystitis. ADDITIONAL INFORMATION Tachycardia:P.A.T. (P.S.V.T.) P.A.T. stands for Paroxysmal Atrial Tachycardia (also called "P.S.V.T." or "Paroxysmal Supraventricular Tachycardia"). This means "sudden onset of fast heart beating." This may feel like your heart is racing or pounding. Because of the suddenness of onset, it is often scary but is usually not a dangerous condition. Episodes may last seconds, minutes or hours. This can occur in otherwise healthy persons who have used excessive amounts of stimulants such as tobacco or caffeine (coffee, tea, cola or medicines containing caffeine). Also certain [id number] cold & sinus remedies, as well as diet pills and some herbal supplements can over-stimulate the heart. Obviously, cocaine and amphetamine are the most powerful heart stimulants and must be avoided. Overactive thyroid and some types of heart valve disorders can also cause P.A.T. If your doctor suspects this, tests may be done to find out if this is the cause in your case. Home Care: 1) Rest today and resume your normal activities as soon as you are feeling back to normal. Sometimes a prolonged episode of P.A.T. can leave you feeling tired and weak for a while. 2) To prevent a recurrence, avoid ALL the stimulants mentioned above. If you have trouble eliminating coffee, switch to decaf. Smokers should make every effort to stop or at least switch to a filtered, low-nicotine type of cigarette while you look for a stop-smoking program. 3) If another episode of P.A.T. occurs, lie down and try to remain calm. These spells usually stop by themselves within a few minutes. Follow Up with your doctor within the week or as instructed by our staff. Get Prompt Medical Attention if any of the following occur: -- Chest, shoulder, arm, neck or back pain -- Shortness of breath -- Weakness -- Fainting or light-headedness -- Fast or pounding heartbeat that lasts over 20 minutes You have been given the following additional information: Lauren (P.A.T.) (Electronically signed by Harman Simons DO 11/02/2016 16:24)
--- NOTE | 2016-11-02 19:07 | ED MAR SUMMARY ---
..... Medication Administration Record [facility] [address] [place] [address] Patient: JULIO C VORA Visit ID: [id number] 56y, F Weight: 72.5 kg Height/Length: 64 in BMI: 27.5 ALLERGIES: No Known Drug Allergy Start 09:40 11/02/2016 Dagmar Aceves R.N., Stop 13:00 11/02/2016 Dagmar Aceves R.N. Medication Administered: IV NS (SALINE), Dose: IV Fluids, Bolus: 500 mL wide open, Dispensed: 1000 mL bag, Site: #1 right AC. Medication Ordered: IV NS : initial bolus 500 mL (1000 mL/hr), then 250 mL/hr for X2 (NOW). Given 09:45 11/02/2016 Dagmar Aceves R.N. Medication Administered: ADENOSINE [IVP], Dose: 6 mg IVP over 1 second(s), Site: #1 right AC. Medication Ordered: Adenosine IV 6 mg (HIGH ALERT MEDICATION, NOW). Given 12:30 11/02/2016 Dagmar Aceves R.N. Medication Administered: ASPIRIN [PO], Dose: 325 mg Tablets PO. Medication Ordered: Aspirin PO 325 mg (Do not crush or chew, NOW). Given 12:30 11/02/2016 Dagmar Aceves R.N. Medication Administered: LOVENOX [SUBCUTANEOUS] (ENOXAPARIN SODIUM), Dose: 80 mg Subcutaneous. Medication Ordered: Lovenox Subcut 80 mg (HIGH ALERT MEDICATION, NOW). Given 15:41 11/02/2016 Dagmar Aceves R.N. Medication Administered: ACETAMINOPHEN [PO] (APAP), Dose: 1000 mg Tablets PO. Medication Ordered: Acetaminophen PO 1,000 mg (NOW).
--- NOTE | 2016-11-02 19:07 | ED MAR SUMMARY ---
..... Medication Administration Record [facility] [address] [place] [address] Patient: JULIO C VORA Visit ID: [id number] 56y, F Weight: 72.5 kg Height/Length: 64 in BMI: 27.5 ALLERGIES: No Known Drug Allergy Start 09:40 11/02/2016 Dagmar Aceves R.N., Stop 13:00 11/02/2016 Dagmar Aceves R.N. Medication Administered: IV NS (SALINE), Dose: IV Fluids, Bolus: 500 mL wide open, Dispensed: 1000 mL bag, Site: #1 right AC. Medication Ordered: IV NS : initial bolus 500 mL (1000 mL/hr), then 250 mL/hr for X2 (NOW). Given 09:45 11/02/2016 Dagmar Aceves R.N. Medication Administered: ADENOSINE [IVP], Dose: 6 mg IVP over 1 second(s), Site: #1 right AC. Medication Ordered: Adenosine IV 6 mg (HIGH ALERT MEDICATION, NOW). Given 12:30 11/02/2016 Dagmar Aceves R.N. Medication Administered: ASPIRIN [PO], Dose: 325 mg Tablets PO. Medication Ordered: Aspirin PO 325 mg (Do not crush or chew, NOW). Given 12:30 11/02/2016 Dagmar Aceves R.N. Medication Administered: LOVENOX [SUBCUTANEOUS] (ENOXAPARIN SODIUM), Dose: 80 mg Subcutaneous. Medication Ordered: Lovenox Subcut 80 mg (HIGH ALERT MEDICATION, NOW). Given 15:41 11/02/2016 Dagmar Aceves R.N. Medication Administered: ACETAMINOPHEN [PO] (APAP), Dose: 1000 mg Tablets PO. Medication Ordered: Acetaminophen PO 1,000 mg (NOW).
--- NOTE | 2016-11-02 19:07 | ED MED RECONCILIATION SUMMARY ---
Patient: JULIO C VORA Medication Reconciliation Report [facility] VisitID: [id number] [address] [place] [address] 56y, F Registration Date/Time: 11/02/2016 Weight: 72.5 kg Height/Length: 64 in. BMI: 27.5 ALLERGIES: No Known Drug Allergy The patient's Home Medications are listed below: NONE. The source(s) of the original Home Medication information: Not obtained. The following Medications were given to the patient in the Emergency Department: Adenosine [IVP] IVP 6 mg, administered: 11/02/2016 9:45:00 AM IV NS IV Fluids bolus 500 mL wide open, administered: 11/02/2016 9:40:00 AM Aspirin [PO] PO 325 mg, administered: 11/02/2016 12:30:00 PM Lovenox [Subcutaneous] Subcutaneous 80 mg, administered: 11/02/2016 12:30:00 PM Acetaminophen [PO] PO 1000 mg, administered: 11/02/2016 3:41:00 PM The following Medications were prescribed to the patient: None.
--- NOTE | 2016-11-02 19:07 | ED DISCHARGE INSTRUCTIONS ---
Patient: JULIO C VORA General Instructions [facility] VisitID: [id number] [place] [address] 56y, F Registration Date/Time: 11/02/2016 Acute moderate systolic, left ventricular congestive heart failure. Mild idiopathic hypotension. Abnormal EKG: paroxysmal supraventricular tachycardia, nonspecific ST-T wave changes and premature ventricular contractions. (initially SVT, then bigemeny with PAC's and likely ectopic atrial rhythm). Paroxysmal supraventricular tachycardia Acute urinary tract infection with cystitis. ADDITIONAL INFORMATION Tachycardia:P.A.T. (P.S.V.T.) P.A.T. stands for Paroxysmal Atrial Tachycardia (also called "P.S.V.T." or "Paroxysmal Supraventricular Tachycardia"). This means "sudden onset of fast heart beating." This may feel like your heart is racing or pounding. Because of the suddenness of onset, it is often scary but is usually not a dangerous condition. Episodes may last seconds, minutes or hours. This can occur in otherwise healthy persons who have used excessive amounts of stimulants such as tobacco or caffeine (coffee, tea, cola or medicines containing caffeine). Also certain pfzl-[id number] cold & sinus remedies, as well as diet pills and some herbal supplements can over-stimulate the heart. Obviously, cocaine and amphetamine are the most powerful heart stimulants and must be avoided. Overactive thyroid and some types of heart valve disorders can also cause P.A.T. If your doctor suspects this, tests may be done to find out if this is the cause in your case. Home Care: 1) Rest today and resume your normal activities as soon as you are feeling back to normal. Sometimes a prolonged episode of P.A.T. can leave you feeling tired and weak for a while. 2) To prevent a recurrence, avoid ALL the stimulants mentioned above. If you have trouble eliminating coffee, switch to decaf. Smokers should make every effort to stop or at least switch to a filtered, low-nicotine type of cigarette while you look for a stop-smoking program. 3) If another episode of P.A.T. occurs, lie down and try to remain calm. These spells usually stop by themselves within a few minutes. Follow Up with your doctor within the week or as instructed by our staff. Get Prompt Medical Attention if any of the following occur: -- Chest, shoulder, arm, neck or back pain -- Shortness of breath -- Weakness -- Fainting or light-headedness -- Fast or pounding heartbeat that lasts over 20 minutes You have been given the following additional information: Lauren (P.A.T.) (Electronically signed by Harman Simons DO 11/02/2016 16:24)
== END 2016-11-02 16:10 | disposition short-term general hospital (02) ==
LOC: ED SRH 09:29
DX: I47.1 Supraventricular tachycardia (principal); I95.0 Idiopathic hypotension; I50.21 Acute systolic (congestive) heart failure; N30.00 Acute cystitis without hematuria
CPT/HCPCS: 90004; 90100; 90469; 90616; 91320; 91556; 92010; 92235; 92530; 92610; 92720; 92760; 92761; 92762; 92763; 92764; 92765; 92766; 92767; 93140; 94060; 95059